=== PATIENT | female | born 1985 | race Caucasian/White ===

== ENCOUNTER 2016-10-26 03:48 | Inpatient (IN) | payer BC ==
[2016-10-26 05:20] VITALS: BMI 30.4
[2016-10-26] MEDS ORDERED: Lactated Ringer's 1,000 ML IV SCH (05:20)
[2016-10-26 06:21] LABS: BASO % 0.2 % (0.0-2.0); EOS # 0.1 K/uL (0.0-0.7); HEMATOCRIT 36.2 % (34.0-47.0); LYMPH # 1.3 K/uL (1.0-4.3); LYMPH % 11.9 % (20.0-40.0); MEAN CELL VOLUME 99.4 fl (81.0-99.0); MEAN CORPUSCULAR HEMOGLOBIN 33.1 pg (27.0-31.0); MEAN CORPUSCULAR HGB CONC 33.3 g/dL (33.0-37.0); MEAN PLATELET VOLUME 6.9 fl (7.2-11.7); MONO # 0.8 K/uL (0.0-0.8); MONO % 7.5 % (0.0-10.0); NEUT % 79.4 % (50.0-75.0); NRBC % 0.1 % (0.0-0.0); RED CELL DISTRIBUTION WIDTH 14.1 % (11.5-14.5); WHITE BLOOD COUNT 11.3 K/uL (4.8-10.8)
--- NOTE | 2016-10-26 08:29 | OBADHP ---
Datetime: 10/26/2016 06:10 Admit Comment, IP Provider: 31 y/o @ 37.1 weeks presents complaining of suspected ROM. Pt was g etting up to go to the bathroom at around 3:00am today when she felt a sudden "gush of fluid" run harvey n her legs. The liquid was clear. Denies any inciting event. Denies VB/CTX and reports +FM. No other complaints. Denies fever/chills, headaches, changes in vision, CP/SOB, epigastric pain, N/V/D/C, urin haylie symptoms, numbness/tingling. PMD: Dr. Edy PEREZBHx: 1 misscarriage requiring D_C in 2013 : Blood type B+, HIV/RPR: neg/NR, HBsAg neg, GC/CHL neg, Rubella Immune. Tdap up to date. GBS pending. echo neg. PMHx: combination of hyper/hypothyroidism Meds: PNVs, levothyroxine combination of 50mcg and 100mcg ALL: NKDA PSurgHx: Bartholin cyst removal (2014) SocialHx: denies ETOH, drugs, tobacco use FamilialHx: father of baby had ASD s/p surgical correction. A/P: 31 y/o @ 37.1 weeks with ROM, admitted for induction of labor. -admit to unit -cbc -type and screen -LR bolus and Mx fluids -anesthiology consult -GBS ppx: pending -Start Cytotec 25mg Q6H -Case discussed with Dr. Demario Henson MD PGY1 @ 5:34am Pt seen and examined by me with dr sandy. Agree with above assessment and plan. Datetime: 10/26/2016 05:23 Pelvic Type - PN: Adequate Extremities - PN: Normal Abdomen - PN: Normal Back - PN: Normal Breast - PN: Normal Lungs - PN: Normal Heart - PN: Normal Thyroid - PN: Normal Neurologic - PN: Normal HEENT - PN: Normal General - PN: Normal Presentation-Admit: Vertex FHR - Baseline A Provider: 149 Amniotic Fluid Color, Provider: Clear Membranes, Provider: Ruptured Pool Provider: Positive Nitrazine Provider: Positive Vital Signs Provider: Reviewed; Within Normal Limits IP Chief Complaint: Suspected ruptured membranes NICHD Variability Prov Fetus A: Moderate 6-25bpm NICHD Accel Fetus A IP Provider: [id number] FHR Category Provider Fetus A: Category I NICHD Decel Fetus A IP Provider: None Dilatation, Provider: closed Effacement, Provider: 0 Station, Provider: -2 Genitourinary Exam: Normal DTRs - PN: Normal EGA AdmitDate IP: 37.1 IP Adm Impression: Term, intrauterine ; Ruptured Membranes IP Admit Plan: Admit to unit; Initiate labor protocol; Initiate labor induction protocol
[2016-10-26] MEDS: Lactated Ringer's 1,000 ML IV SCH ×2 (11:30→18:00)
[2016-10-26] MEDS ORDERED: Levothyroxine 100 MCG TAB PO ONE (12:00)
[2016-10-26 13:10] VITALS: BP 98/68; PULSE 68; RESP 20; TEMP 98.1; O2SAT 99
--- NOTE | 2016-10-26 14:40 | OBPN ---
Datetime: 10/26/2016 09:00 IP Progress Impression: Reassuring heart rate IP Informed Consent Obtain: Vaginal Delivery; Risks, Benefits and Alternatives Discussed IP Progress Plan: Continue present management; Induction Pool Provider: Positive FHR - Baseline A Provider: 150 Presentation-Admit: Vertex IP Progress Note Comment: OB hospitalist cortez...Late entry at 14:35pm for 9am encounter Sign out rec'd. She was admitted for SROM closed. One dose of 25mcg Cytotec given earlier. A: IUP at 37w/SROM PLAN: will change to Cytotec 50mcg po q4hr...condition, pain management, IOL, medications discusse d with patient and her . Her questions were answered NICHD Accel Fetus A IP Provider: [id number] FHR Category Provider Fetus A: Category I NICHD Variability Prov Fetus A: Moderate 6-25bpm NICHD Decel Fetus A IP Provider: None Datetime: 10/26/2016 05:23 Nitrazine Provider: Positive Membranes, Provider: Ruptured Amniotic Fluid Color, Provider: Clear Vital Signs Provider: Reviewed; Within Normal Limits Dilatation, Provider: closed Effacement, Provider: 0 Station, Provider: -2
[2016-10-26] MEDS ORDERED: Nalbuphine 20 mg/ml Inj (1 ml) IVP PRN (18:30)
[2016-10-27] MEDS: Lactated Ringer's 1,000 ML IV SCH ×3 (03:00→10:18)
[2016-10-27] MEDS ORDERED: Fentanyl/Bupivacaine HCl 250 ML EPI ONE (03:43)
[2016-10-27] MEDS ORDERED: Bupivacaine HCl 0.25% PF (10 ml) Inj ONE (03:44)
[2016-10-27] MEDS ORDERED: Ampicillin 2 GM in Sodium Chloride 0.9% 100 ML IVPB SCH (06:14)
[2016-10-27] MEDS ORDERED: Levothyroxine 100 MCG TAB PO SCH (06:30)
--- NOTE | 2016-10-27 07:34 | OBPN ---
Datetime: 10/27/2016 07:28 IP Progress Impression: Normal progression of labor; Reassuring heart rate IP Informed Consent Obtain: Vaginal Delivery; Risks, Benefits and Alternatives Discussed IP Progress Plan: Continue present management; Anticipate Vaginal Delivery Contraction Comments Provider: 2-3m FHR - Baseline A Provider: 150 Presentation-Admit: Vertex IP Progress Note Comment: She rec'd last dose of Cytotec around 10pm. She was checked at 2:30am. 3 -4cm and rec'd epidural. She was check at 5:55am and noted to be 8-9cm...she feels some rectal pres sure..given Ampicillin for prolonged ROM A: Second stage of labor PLAN: aniticipate NICHD Accel Fetus A IP Provider: [id number] FHR Category Provider Fetus A: Category I NICHD Variability Prov Fetus A: Moderate 6-25bpm Dilatation, Provider: 10 Effacement, Provider: 100 Station, Provider: 0 NICHD Decel Fetus A IP Provider: None
[2016-10-27] MEDS ORDERED: Lidocaine 1% Inj (20ml) ONE (08:03)
[2016-10-27] MEDS ORDERED: Benzocaine/Menthol SPRAY TOP PRN (09:25)
[2016-10-27] MEDS ORDERED: Oxycodone/Acetaminophen 5/325 mg Tab PO PRN ×2 (09:25→16:01)
[2016-10-27] MEDS ORDERED: Levothyroxine 50 MCG TAB PO SCH (10:00)
[2016-10-27] MEDS: Benzocaine/Menthol SPRAY TOP PRN (17:10)
[2016-10-28] MEDS: Levothyroxine 50 MCG TAB PO SCH (06:33)
[2016-10-28] MEDS ORDERED: Multivitamin With Minerals Tab PO SCH (09:00)
--- NOTE | 2016-10-28 09:18 | OBPPN ---
Datetime: 10/28/2016 09:09 PP Pain Prov: Within normal limits PP Abdomen/Uterus Prov: Normal PP Lochia Prov: Normal PP Progress Prov: Normal PP Impression Prov: Normal progression PP Plan Prov: Continue present management PP Progress Note Prov: PPD 1 s/p , breast and bottle feeding, doing well Continue current management Vital Signs Provider PP: Reviewed
[2016-10-28] MEDS: Multivitamin With Minerals Tab PO SCH (09:20)
[2016-10-28 10:45] LABS: BASO % 0.2 % (0.0-2.0); EOS # 0.1 K/uL (0.0-0.7); EOS % 0.7 % (0.0-4.0); HEMATOCRIT 26.1 % (34.0-47.0); LYMPH % 9.9 % (20.0-40.0); MEAN CELL VOLUME 99.6 fl (81.0-99.0); MEAN CORPUSCULAR HEMOGLOBIN 33.9 pg (27.0-31.0); MEAN PLATELET VOLUME 6.8 fl (7.2-11.7); MONO # 0.7 K/uL (0.0-0.8); MONO % 7.4 % (0.0-10.0); NEUT # 8.2 K/uL (1.8-7.0); NEUT % 81.8 % (50.0-75.0); PLATELET COUNT 200 K/uL (130-400); RED CELL DISTRIBUTION WIDTH 14.4 % (11.5-14.5)
[2016-10-28 11:51] LABS: EOSINOPHIL 1 % (0-7); NEUTROPHIL 90 % (42-75); TOTAL CELLS COUNTED 100
[2016-10-28 11:54] LABS: LARGE PLATELETS PRESENT
[2016-10-29] MEDS: Levothyroxine 50 MCG TAB PO SCH (06:20)
[2016-10-29] MEDS: Benzocaine/Menthol SPRAY TOP PRN (08:45)
[2016-10-29] MEDS: Multivitamin With Minerals Tab PO SCH (08:45)
--- NOTE | 2016-10-29 13:32 | OBPPN ---
Datetime: 10/29/2016 13:29 PP Pain Prov: Within normal limits PP Nausea Prov: Denies PP Flatus Prov: Yes PP Breasts Prov: Normal PP Heart Prov: Normal PP Lungs Prov: Normal PP Abdomen/Uterus Prov: Normal PP Lochia Prov: Normal PP Vulva/Perineum Prov: Normal PP CVA Tenderness Prov: Normal PP Extremities Prov: Normal PP Comments Phys Exam Prov: Fundus firm under umbilicus PP Impression Prov: Normal progression PP Plan Prov: Continue present management PP Progress Note Prov: Patient denies CP, no SOB, no N/V, tolerating PO diet, ambulating/voiding wel l, mild lochia, abdominal pain tolerable with meds A/P 1. Patient for discharge 2. Discharge instructions reviewed IP PP Procedures: None Vital Signs Provider PP: Reviewed; Within Normal Limits
--- NOTE | 2016-10-29 13:32 | OBDCSUM ---
Datetime: 10/29/2016 13:30 Discharged to, Provider: Home Follow up at, Provider: OB Disch Instr Diet: Regular Discharge Diagnosis, Provider: Term Delivered Discharge Time: 10/29/2016 13:30 Follow up in weeks, Provider: 6 wks Disch Activity Restrictions: No sexual activity; Nothing in vagina - [place], tampons, douche Discharge Comment, Provider: Return to hospital if increased bleeding pain, temp
== END 2016-10-29 15:00 | disposition home or self-care (01) | DRG 775 ==
LOC: H.EROB2 03:48 → H.L&D 05:20 → H.OB/GYN 10-27 16:09
PROVIDERS: ADMIT Obstetrics & Gynecology; ATTEND Obstetrics & Gynecology
PROC: 10E0XZZ Delivery of Products of Conception, External Approach (ICD-10-PCS; principal; 2016-10-26)
PROC: 4A1HXCZ Monitoring of Products of Conception, Cardiac Rate, External Approach (ICD-10-PCS; 2016-10-26)
DX: O42.02 Full-term premature rupture of membranes, onset of labor within 24 hours of rupture (principal); E05.90 Thyrotoxicosis, unspecified without thyrotoxic crisis or storm; Z37.0 Single live birth; O99.284 Endocrine, nutritional and metabolic diseases complicating childbirth; E03.9 Hypothyroidism, unspecified; Z3A.37 37 weeks gestation of pregnancy